=== PATIENT | female | born 2005 | race Caucasian/White ===

== ENCOUNTER 2024-03-08 21:43 | Emergency (ER) | payer BC, SELFPAY ==
[2024-03-08 21:45] VITALS: BP 140/94
[2024-03-08 22:01] LABS: % Basophils 0.9 % (0-2); % Eosinophils 1.7 % (0-6); % Immature Granulocytes 0.3 % (0-0.5); % Lymphocytes 34.4 % (20.5-51.1); % Monocytes 8.7 % (1.7-9.3); Absolute Basophils 0.1 10^3/uL (0-0.2); Absolute Eosinophils 0.1 10^3/uL (0-0.7); Absolute Lymphocytes 2.6 10^3/uL (1.2-3.4); Absolute Monocytes 0.7 10^3/uL (0.1-0.6); Hematocrit 34.7 % (37.0-47.0); Hemoglobin 12.2 g/dL (12.0-16.0); Mean Corp Hgb Conc. 35.2 g/dL (33.0-37.0); Mean Corpuscular Hgb 30.1 pg (27.0-31.0); Mean Corpuscular Volume 85.7 fL (81.0-99.0); Mean Platelet Volume 10.1 fL (7.4-10.4); Nucleated Red Blood Cells % 0 %; Platelet Count 252 10^3/uL (130-400); Red Blood Cell Count 4.05 10^6/uL (4.20-5.40); Red Cell Dist. Width 12.9 % (11.5-14.5); White Blood Cell Count 7.5 10^3/uL (4.8-10.8)
[2024-03-08 22:14] LABS: HCG, Serum Qualitative Screen Negative
[2024-03-08 22:23] LABS: ALT (SGPT) 45 U/L (0-35); AST (SGOT) 46 U/L (14-36); Alkaline Phosphatase 66 U/L (38-126); Blood Urea Nitrogen 16 mg/dl (7-17); Calcium 9.4 mg/dl (8.4-10.2); Carbon Dioxide 29 mmol/L (22-30); Chloride 100 mmol/L (98-107); Glucose 97 mg/dl (70-99); Lipase 74 U/L (23-300); Potassium 3.6 mmol/L (3.5-5.1); Sodium 137 mmol/L (135-145); Total Bilirubin 0.3 mg/dl (0.2-1.3); eGFR > 60.00
[2024-03-09 00:10] VITALS: BMI 28.2
[2024-03-09 00:12] VITALS: BP 115/79
--- NOTE | 2024-03-09 00:38 | ED.GENMED ---
History of Present Illness
General
Chief Complaint: Cardiac Symptoms
Time Seen by Provider: 03/09/24 00:38
History of Present Illness
History of Present Illness:
HPI: The patient presents with chest discomfort described as pressure. She states she is had this kind of episode in the past and has been seen by [facility] and ultimately was felt that her symptoms were related to 'rumination'. She has also seen by
cardiology in the past.
EXAM:
GENERAL: Well appearing in no distress
HEENT: Moist oral mucosa
CARDIOVASCULAR: No murmurs, normal heart rate, regular rhythm, very mild anterior chest wall tenderness, no friction rub
PULMONARY: No respiratory distress, breath sounds are clear and equal
ABDOMEN: Soft with no peritoneal signs, no tenderness
NEUROLOGIC: Excellent strength all extremities, no coordination deficits
PSYCHIATRIC: Appropriate mental status, normal insight and judgement
EXTREMITIES: Nontender, no edema, moves all extremities equally
SKIN: No rash, no lesions
TIME OF INITIAL ENCOUNTER: 12:40 AM
NUMBER AND COMPLEXITY OF PROBLEMS ADDRESSED AT THE ENCOUNTER
� Chronic conditions affecting care: Childhood asthma, GERD, anorexia
� Acute Exacerbation and/or Progression of Chronic Illness: This is an acute but recurring problem
� Differential Diagnosis includes: Exacerbation of GERD, anxiety, doubt asthma, costochondritis
AMOUNT AND/OR COMPLEXITY OF DATA TO BE REVIEWED AND ANALYZED
� I performed an independent evaluation of and my interpretation is:
EKG: Sinus 60, normal axis, no acute ST abnormality
CT:
X-rays:
Laboratory Studies: CBC and chemistries unremarkable, minimal transaminase elevation, albumin low, hCG negative
Other:
� Review of other/old records: The patient was seen here in January and with a wrist fracture
� Clinical information was obtained by an independent historian: I spoke to the mother at bedside
� Prescriptions/Medications Considered but not given:
� Further testing considered but not performed: Consider chest x-ray however the lung sounds are very clear and equal
RISK OF COMPLICATIONS AND/OR MORBIDITY OR MORTALITY OF PATIENT MANAGEMENT
� Social determinants of health affecting care: Lives at home
� Discussion with other providers:
� Escalation of care including admission/observation vs risk of discharge considered: Possible/likely GI etiology. Recommend continued use of omeprazole. She has an appointment to see Do this April. EKG is normal.
Phy Exam
Physical Exam
Physical Exam:
See HPI
Course
Orders/Labs/Results
Orders:
Orders
03/08/24 21:49
Electrocardiogram (*1) Urgent
Reason for Study: Chest Pain
EKG- Treatment ONCE
Test Result ONCE
03/08/24 21:57
CMP [Comprehensive Metabolic Panel] Urgent
Complete Blood Count/With Diff Urgent
HCG, Serum Qualitative Screen Urgent
Lipase Urgent
Abnormal Lab Results
03/08/24
21:57
RBC 4.05 L 10^6/uL
(4.20-5.40)
Hct 34.7 L %
(37.0-47.0)
Absolute Monos (auto) 0.7 H 10^3/uL
(0.1-0.6)
AST 46 H U/L
(14-36)
ALT 45 H U/L
(0-35)
Albumin 3.0 L g/dl
(3.5-5.0)
03/08/24 21:57
03/08/24 21:57
Vital Signs
Initial and Last Documented VS:
Initial Vital Signs
Temp Pulse Resp BP Pulse Ox
98.5 F 64 20 140/94 100
03/08/24 21:45 03/08/24 21:45 03/08/24 21:45 03/08/24 21:45 03/08/24 21:45
Last Documented Vital Signs
Temp Pulse Resp BP Pulse Ox
98.5 F 63 18 115/79 100
03/08/24 21:45 03/09/24 00:12 03/09/24 00:12 03/09/24 00:12 03/09/24 00:12
*Critical Care Note
Total Time (30-74mins, 75-104mins- exclusive of procedures): Not Applicable
ED Attending Note
-
Portions of this chart may have been created with voice recognition software.� Occasional wrong word or��sound alike� substitutions may have occurred due to the inherent limitations of voice recognition software.
Discharge Plan
Departure
Patient Disposition: Home (Routine Discharge)
Date of Disposition: 03/09/24
Time of Disposition: 00:54
Patient with high blood pressure during this ER visit?: Yes
Discharge Problem:
Chest pain
Prescriptions:
No Action
No Current Medications
0
Referrals:
Patricia Castro MD [Active] - Next open appointment
Lila Mchugh CRNP [Family Provider] -
Activity Restrictions/Additional Instructions:
The cause of your symptoms is unclear but very well may be related to a GI etiology. I recommend a 2-week course of continued daily omeprazole. Return here if worse. Follow-up with your GI doctor.
Interventions
Interventions:
*Risk Screen - Suicide Last Done: 03/08/24 21:45
*General Assessment Last Done: 03/09/24 00:13
*Neglect/Abuse Screening Last Done: 03/08/24 21:45
ED- Fall Risk Assessment Last Done: 03/09/24 00:14
*ED COVID-19 Vaccine History Last Done: 03/09/24 00:13
*Nursing Disposition Last Done: 03/09/24 00:56
ED- Pulmonary Assessment Last Done: 03/09/24 00:14
ED- Cardiac Assessment Last Done: 03/09/24 00:14
Discharge Date and Time
Print Language: GAMBIAN
== END 2024-03-09 01:00 | disposition home or self-care (01) ==
LOC: EMR 21:43
PROVIDERS: Emergency Medicine; EMERGENCY PHYSICIAN Emergency Medicine; FAMILY PHYSICIAN Nurse Practitioner Adult Health
DX: R07.89 Other chest pain (principal)
CPT/HCPCS: 99283; 80053; 83690; 84703; 85025; 93005

== ENCOUNTER 2025-03-10 06:16 | Day surgery (SDC) | payer BC, SELFPAY | END 2025-03-10 13:08 | disposition home or self-care (01) | LOC: GI 06:16 | PROVIDERS: ATTENDING PHYSICIAN Internal Medicine Gastroenterology | DX: R19.4 Change in bowel habit (principal); K64.8 Other hemorrhoids; R12 Heartburn; K31.89 Other diseases of stomach and duodenum | CPT/HCPCS: 45380; 43239; 88305; 88342 ==